=== PATIENT | female | born 1990 | race Caucasian/White ===

== ENCOUNTER 2017-04-26 10:28 | Inpatient (IN) | payer OTHER ==
[~2017-04-26] VITALS: Ht 160 cm; Wt 69.5 kg
[2017-04-26 11:57] VITALS: BP 135/86
[2017-04-26] MEDS ORDERED: OXYTOCIN 30U/ 0.9% NaCL 500ML 500 ML IV SCH (12:34)
[2017-04-26] MEDS ORDERED: LACTATED RINGERS 1,000 ML IV SCH ×2 (12:34)
[2017-04-26] MEDS ORDERED: OXYTOCIN 30U/ 0.9% NaCL 500ML 500 ML IV PRN (12:34)
[2017-04-26] MEDS ORDERED: OXYTOCIN 30U/ 0.9% NaCL 500ML 500 ML IV ONE (12:34)
[2017-04-26] MEDS ORDERED: LACTATED RINGERS 1,000 ML IVBOLUS ONE (13:00)
[2017-04-26] MEDS ORDERED: SODIUM CITRATE/CITRIC ACID 30 ML UDC PO PRN (13:00)
[2017-04-26] MEDS ORDERED: METOCLOPRAMIDE 5 MG/ML, 2ML IVPush PRN (13:00)
[2017-04-26] MEDS ORDERED: RHOGAM FROM BLOOD BANK 1 NOTE EA IM/IV PRN (13:00)
[2017-04-26 13:19] LABS: DAU SCREEN DISCLAIMER
[2017-04-26 13:26] LABS: HEMATOCRIT 38.3 % (34.6-47.8); HEMOGLOBIN 12.8 g/dL (11.7-16.4); WHITE BLOOD COUNT 11.5 x10^3/uL (3.4-10)
[2017-04-26 13:40] LABS: ASPARTATE AMINO TRANSFERASE 15 U/L (15-37); BLOOD UREA NITROGEN 4 mg/dL (7-18)
[2017-04-26] MEDS ORDERED: D5%-LACTATED RINGERS 1,000 ML IV SCH (14:00)
[2017-04-26] MEDS ORDERED: OXYTOCIN 30U/ 0.9% NaCL 500ML 500 ML ONE (15:15)
[2017-04-26] MEDS ORDERED: SODIUM CITRATE/CITRIC ACID 30 ML UDC ONE ×2 (15:15→16:37)
[2017-04-26] MEDS ORDERED: METOCLOPRAMIDE 5 MG/ML, 2ML ONE ×2 (15:15→16:37)
[2017-04-26] MEDS ORDERED: HYDROmorphone 1 MG/ML, 1ML IV PRN (15:30)
[2017-04-26] MEDS ORDERED: ONDANSETRON 2MG/ML, 2ML IVPush PRN (15:30)
[2017-04-26] MEDS ORDERED: MIDAZOLAM 1 MG/ML, 2ML IV PRN (15:30)
[2017-04-26] MEDS ORDERED: HYDROcodone/APAP 7.5-325MG/15ML UDC PO PRN (15:30)
[2017-04-26] MEDS ORDERED: LABETALOL 5MG/ML, 20ML IV PRN (15:30)
[2017-04-26] MEDS ORDERED: PROMETHAZINE 25 MG/ML, 1ML IV PRN (15:30)
[2017-04-26] MEDS ORDERED: MEPERIDINE/PF 25MG/0.5ML IVPush PRN (15:30)
[2017-04-26] MEDS ORDERED: EPHEDRINE 50 MG/ML, 1ML IVPush PRN (15:30)
[2017-04-26] MEDS ORDERED: ALBUTEROL SULFATE 2.5 MG/3 ML NPPB PRN (15:30)
[2017-04-26] MEDS ORDERED: hydrALAzine 20 MG/ML, 1ML IV PRN (15:30)
[2017-04-26] MEDS ORDERED: OXYcodone 5 MG/5 ML ORAL.SOL UDC PO PRN ×3 (15:30→18:30)
[2017-04-26] MEDS ORDERED: MIDAZOLAM 1 MG/ML, 2ML ONE (15:32)
[2017-04-26] MEDS ORDERED: FENTANYL PF 100 MCG/2ML ONE ×3 (15:33→17:55)
[2017-04-26] MEDS ORDERED: ONDANSETRON 2MG/ML, 2ML ONE (16:37)
[2017-04-26] MEDS ORDERED: CEFAZOLIN 1,000 MG ONE (16:37)
[2017-04-26] MEDS ORDERED: DEXAMETHASONE 4 MG/ML, 1ML ONE (16:37)
[2017-04-26] MEDS ORDERED: OXYTOCIN 10 UNITS/ML, 1ML ONE (16:37)
[2017-04-26] MEDS ORDERED: KETOROLAC 30 MG/1 ML ONE (16:37)
[2017-04-26] MEDS ORDERED: OXYcodone 5 MG/5 ML ORAL.SOL UDC ONE ×2 (17:56)
[2017-04-26] MEDS: FENTANYL PF 100 MCG/2ML IV PRN ×2 (18:01→18:55)
[2017-04-26] MEDS: OXYTOCIN 30U/ 0.9% NaCL 500ML 500 ML IV SCH (18:16)
[2017-04-26] MEDS: LACTATED RINGERS 1,000 ML IV SCH ×2 (18:16)
[2017-04-26] MEDS ORDERED: CARBOPROST TROMETHAMINE 250 MCG/ML, 1ML IM PRN (18:30)
[2017-04-26] MEDS ORDERED: OXYcodone IR 5MG TABLET PO PRN (18:30)
[2017-04-26] MEDS ORDERED: DOCUSATE 100 MG CAPSULE PO PRN (18:30)
[2017-04-26] MEDS ORDERED: METHYLERGONOVINE 0.2 MG/ML IM PRN (18:30)
[2017-04-26] MEDS ORDERED: METOCLOPRAMIDE 5 MG/ML, 2ML IV PRN (18:30)
[2017-04-26] MEDS ORDERED: ONDANSETRON 2MG/ML, 2ML IV PRN (18:30)
[2017-04-26] MEDS ORDERED: MEPERIDINE/PF 50 MG/ML IM PRN (18:30)
[2017-04-26] MEDS ORDERED: BISACODYL 10 MG SUPP PR PRN (18:30)
[2017-04-26] MEDS ORDERED: MISOPROSTOL 200 MCG TABLET PR PRN (18:30)
[2017-04-26] MEDS ORDERED: ACETAMINOPHEN 325 MG TABLET PO PRN ×2 (18:30)
[2017-04-26] MEDS ORDERED: HYDROmorphone 1 MG/ML, 1ML ONE (19:45)
[2017-04-26 21:35] VITALS: BP 103/61
[2017-04-26] MEDS: OXYcodone/APAP 5/325MG TABLET PO PRN ×2 (22:13→22:17)
[2017-04-26] MEDS: KETOROLAC 30 MG/1 ML IV SCH (23:31)
[2017-04-27 01:11] LABS: HEMATOCRIT 33.6 % (34.6-47.8); HEMOGLOBIN 11.4 g/dL (11.7-16.4); WHITE BLOOD COUNT 17.7 x10^3/uL (3.4-10)
[2017-04-27] MEDS: OXYcodone/APAP 5/325MG TABLET PO PRN ×4 (02:15→17:00)
[2017-04-27] MEDS: LACTATED RINGERS 1,000 ML IV SCH ×5 (02:16→18:16)
[2017-04-27 02:20] VITALS: BP 98/58
[2017-04-27] MEDS: OXYTOCIN 30U/ 0.9% NaCL 500ML 500 ML IV SCH ×2 (04:16→14:16)
[2017-04-27] MEDS: KETOROLAC 30 MG/1 ML IV SCH ×3 (05:34→17:42)
[2017-04-27 05:45] VITALS: BP 97/57
[2017-04-27 08:45] VITALS: BP 94/57
[2017-04-27] MEDS ORDERED: PRENATAL VIT/IRON/FA 1 EACH TABLET PO SCH (09:00)
[2017-04-27] MEDS ORDERED: RHOGAM FROM BLOOD BANK 1 NOTE EA IM/IV ONE (11:30)
[2017-04-27 13:00] VITALS: BP 102/62
[2017-04-27] MEDS ORDERED: IBUP-1222 PO (17:33)
[2017-04-27] MEDS ORDERED: OXYC-302 PO (17:33)
[2017-04-27] MEDS ORDERED: DOCU-131 PO (17:34)
[2017-04-28] MEDS ORDERED: IBUPROFEN 600 MG TABLET PO PRN (18:30)
[2017-04-30 15:07] LABS: APTT 26.1 sec (.); PROTHROMBIN TIME 9.8 sec (.)
== END 2017-04-27 19:45 | disposition home or self-care (01) | DRG 765 ==
LOC: LDOP 10:28 → LDIP 13:44 → 2NW 21:27
PROVIDERS: ADMIT Obstetrics & Gynecology; ATTEND Obstetrics & Gynecology
PROC: 10D00Z1 Extraction of Products of Conception, Low, Open Approach (ICD-10-PCS; principal; 2017-04-26)
PROC: 30233S1 Transfusion of Nonautologous Globulin into Peripheral Vein, Percutaneous Approach (ICD-10-PCS; 2017-04-26)
DX: O36.4XX0 Maternal care for intrauterine death, not applicable or unspecified (principal); O99.354 Diseases of the nervous system complicating childbirth; O99.12 Other diseases of the blood and blood-forming organs and certain disorders involving the immune mechanism complicating childbirth; O36.0930 Maternal care for other rhesus isoimmunization, third trimester, not applicable or unspecified; O34.211 Maternal care for low transverse scar from previous cesarean delivery; O99.52 Diseases of the respiratory system complicating childbirth; J45.909 Unspecified asthma, uncomplicated; G43.909 Migraine, unspecified, not intractable, without status migrainosus; O77.0 Labor and delivery complicated by meconium in amniotic fluid; O99.89 Other specified diseases and conditions complicating pregnancy, childbirth and the puerperium; O32.1XX0 Maternal care for breech presentation, not applicable or unspecified; N73.6 Female pelvic peritoneal adhesions (postinfective); E28.2 Polycystic ovarian syndrome; Z90.49 Acquired absence of other specified parts of digestive tract; Z3A.29 29 weeks gestation of pregnancy; Z37.1 Single stillbirth
CPT/HCPCS: 36415; 76815; 80053; 80307; 81001; 84443; 85025; 85384; 85460; 85461; 85598; 85610; 85613; 85670; 85730; 85732; 86146; 86147; 86850; 86870; 86900; 86922; 86923; 87086; 88305; J0690; J1100; J1170; J1885; J2250; J2405; J2790; J3010; G0479; J2590; J2765; J7120

== ENCOUNTER 2019-05-23 14:13 | Outpatient (CLI) | payer BC ==
[~2019-05-23] VITALS: Ht 160 cm; Wt 76.8 kg
[~2019-05-23 14:13] MED LIST: DOCU-131 PO; IBUP-1222 PO; OXYC-302 PO
[2019-05-23 14:34] VITALS: BP 113/71
[2019-05-23 15:24] LABS: MICROSCOPIC NOT IND
[2019-05-23] MEDS ORDERED: NIFE30TA15 PO (16:33)
[2019-05-23] MEDS ORDERED: MAGN400T36 PO (16:40)
[2019-05-23] MEDS ORDERED: ASPI-696 PO (16:40)
[2019-05-23] MEDS ORDERED: LEVO50TA5 PO (16:40)
== END 2019-05-23 17:10 | disposition home or self-care (01) ==
LOC: LDOP 14:13
PROVIDERS: ATTEND Obstetrics & Gynecology
DX: O62.9 Abnormality of forces of labor, unspecified (principal); Z3A.32 32 weeks gestation of pregnancy
CPT/HCPCS: 59025; 81003; 87086; 99201; G0463

== ENCOUNTER 2019-06-04 20:28 | Outpatient (CLI) | payer BC ==
[~2019-06-04] VITALS: Ht 160 cm; Wt 77.0 kg
[~2019-06-04 20:28] MED LIST changes: +ASPI-696 PO; +LEVO50TA5 PO; +MAGN400T36 PO; +NIFE30TA15 PO
[2019-06-04 20:49] VITALS: BP 121/68
[2019-06-04 20:59] LABS: MICROSCOPIC NOT IND
[2019-06-04] MEDS ORDERED: NIFE10CA49 PO (21:35)
== END 2019-06-04 22:04 | disposition home or self-care (01) ==
LOC: LDOP 20:28
PROVIDERS: ATTEND Obstetrics & Gynecology
DX: O26.893 Other specified pregnancy related conditions, third trimester (principal); R10.9 Unspecified abdominal pain; Z3A.34 34 weeks gestation of pregnancy
CPT/HCPCS: 59025; 81003; 87086; 99211; G0463

== ENCOUNTER 2019-06-06 16:42 | Outpatient (CLI) | payer BC ==
[~2019-06-06] VITALS: Ht 160 cm; Wt 78.1 kg
[~2019-06-06 16:42] MED LIST changes: +NIFE10CA49 PO
[2019-06-06] MEDS ORDERED: BETAMETHASONE 6 MG/ML, 5ML IM ONE (17:00)
[2019-06-06] MEDS ORDERED: BETAMETHASONE 6 MG/ML, 5ML IM SCH (17:00)
[2019-06-06] MEDS ORDERED: PREN1TAB98 PO (17:10)
== END 2019-06-06 17:18 | disposition home or self-care (01) ==
LOC: LDOP 16:42
PROVIDERS: ATTEND Obstetrics & Gynecology
DX: Z34.93 Encounter for supervision of normal pregnancy, unspecified, third trimester (principal); Z3A.34 34 weeks gestation of pregnancy
CPT/HCPCS: 59025; 96372; 99211; J0702; G0463

== ENCOUNTER 2019-06-07 12:34 | Inpatient (IN) | payer BC ==
[~2019-06-07] VITALS: Ht 160 cm; Wt 78.1 kg
[~2019-06-07 12:34] MED LIST changes: +PREN1TAB98 PO
[2019-06-07] MEDS ORDERED: LACTATED RINGERS 1,000 ML IVBOLUS ONE ×2 (13:00→15:30)
[2019-06-07] MEDS ORDERED: FENTANYL PF 100 MCG/2ML ONE ×2 (13:24→15:37)
[2019-06-07] MEDS: FENTANYL PF 100 MCG/2ML IVPush PRN ×2 (13:26→15:39)
[2019-06-07] MEDS ORDERED: BETAMETHASONE 6 MG/ML, 5ML IM ONE (13:30)
[2019-06-07 13:40] VITALS: BP 134/67
[2019-06-07 13:44] LABS: MEAN CORPUSCULAR HGB CONC 32.7 g/dL (32.4-35.8); MEAN CORPUSCULAR VOLUME 88.8 fL (80-100); MEAN PLATELET VOLUME 8.6 fL (7.4-10.4); PLATELET COUNT 263 x10^3/uL (130-400); RED BLOOD COUNT 4.03 x10^6/uL (3.82-5.3); RED CELL DISTRIBUTION WIDTH 17.5 % (9.6-15.2)
[2019-06-07] MEDS: LACTATED RINGERS 1,000 ML IV SCH ×4 (14:01→21:00)
[2019-06-07] MEDS ORDERED: OXYTOCIN 30U/ 0.9% NaCL 500ML 500 ML ONE (14:03)
[2019-06-07] MEDS ORDERED: NEWBORN KIT ONE (14:03)
[2019-06-07] MEDS ORDERED: SODIUM CITRATE/CITRIC ACID 30 ML UDC PO ONE (15:30)
[2019-06-07] MEDS ORDERED: METOCLOPRAMIDE 5 MG/ML, 2ML IV ONE (15:30)
[2019-06-07 15:34] LABS: MD YES
[2019-06-07] MEDS ORDERED: METOCLOPRAMIDE 5 MG/ML, 2ML ONE (15:36)
[2019-06-07] MEDS ORDERED: SODIUM CITRATE/CITRIC ACID 30 ML UDC ONE (15:36)
[2019-06-07 15:39] LABS: BAND#(MANUAL) 0.94 x10^3/uL; BANDS%(MANUAL) 5 % (0-7); BASOS#(MANUAL) 0.19 x10^3/uL (0-0.1); BASOS% (MANUAL) 1 % (0-1); LYMPH#(MANUAL) 1.88 x10^3/uL (1-3.4); LYMPHS% (MANUAL) 10 % (22-44); MONOS#(MANUAL) 1.13 x10^3/uL (0.3-2.7); MONOS% (MANUAL) 6 % (2-9); MYELOCYTES# (MANUAL) 0.19 x10^3/uL (0-0); MYELOCYTES% (MANUAL) 1 % (0-0); SEGS% (MANUAL) 75 % (42-75)
[2019-06-07 15:40] LABS: OTHER CELLS # (MANUAL) 0.38 x10^3/uL (0-0); OTHER CELLS % (MANUAL) 2 % (0-0)
[2019-06-07 15:44] LABS: <PLATELET ESTIMATE> ADEQUATE; <PLT MORPHOLOGY> NORMAL PLT MORPH; <RBC MORPHOLOGY> NORMAL
[2019-06-07] MEDS ORDERED: morphine SULFATE/PF 0.5 MG/ML, 10ML ONE (16:16)
[2019-06-07] MEDS ORDERED: EPINEPHRINE 1 MG/ML, 1ML ONE (16:26)
[2019-06-07] MEDS ORDERED: CEFAZOLIN 1,000 MG ONE (18:17)
[2019-06-07] MEDS ORDERED: ONDANSETRON 2MG/ML, 2ML ONE (18:17)
[2019-06-07] MEDS ORDERED: PHENYLEPHRINE 10 MG/ML ONE (18:17)
[2019-06-07] MEDS ORDERED: EPHEDRINE 50 MG/ML, 1ML ONE (18:17)
[2019-06-07] MEDS ORDERED: OXYTOCIN 10 UNITS/ML, 1ML ONE (18:17)
[2019-06-07] MEDS ORDERED: WATER-INJECTION,STERILE 10 ML IV ONE (18:17)
[2019-06-07] MEDS ORDERED: LIDOCAINE-MPF 2% ,5ML ONE (18:24)
[2019-06-07] MEDS ORDERED: METOCLOPRAMIDE 5 MG/ML, 2ML IV PRN (18:30)
[2019-06-07] MEDS ORDERED: CARBOPROST TROMETHAMINE 250 MCG/ML, 1ML IM PRN (18:30)
[2019-06-07] MEDS ORDERED: TRANEXAMIC ACID 1,000 MG in SODIUM CHLORIDE 0.9% 100 ML IVPB ONE (18:30)
[2019-06-07] MEDS ORDERED: OXYcodone IR 5MG TABLET PO PRN (18:30)
[2019-06-07] MEDS ORDERED: ONDANSETRON 2MG/ML, 2ML IV PRN ×2 (18:30→19:30)
[2019-06-07] MEDS ORDERED: MISOPROSTOL 200 MCG TABLET PR PRN (18:30)
[2019-06-07] MEDS ORDERED: ACETAMINOPHEN 325 MG TABLET PO PRN ×2 (18:30)
[2019-06-07] MEDS: KETOROLAC 30 MG/1 ML IV SCH (18:30)
[2019-06-07] MEDS ORDERED: METHYLERGONOVINE 0.2 MG/ML IM PRN (18:30)
[2019-06-07] MEDS ORDERED: MEPERIDINE/PF 50 MG/ML IM PRN (18:30)
[2019-06-07] MEDS ORDERED: MIDAZOLAM 1 MG/ML, 2ML ONE (18:32)
[2019-06-07] MEDS ORDERED: ONDANSETRON 2MG/ML, 2ML IVPush PRN (19:30)
[2019-06-07] MEDS ORDERED: KETOROLAC 30 MG/1 ML IVPush PRN (19:30)
[2019-06-07] MEDS ORDERED: HYDROmorphone/PF 10 MG/ML, 1ML IVPush PRN (19:30)
[2019-06-07] MEDS ORDERED: NALOXONE 0.4 MG/ML, 1ML IVPush PRN (19:30)
[2019-06-07] MEDS ORDERED: OXYcodone/APAP 5/325MG TABLET PO PRN (19:30)
[2019-06-07] MEDS ORDERED: HYDROmorphone 2 MG/ML, 1ML IVPush PRN (19:30)
[2019-06-07] MEDS ORDERED: DIPHENHYDRAMINE 50 MG/ML, 1ML IVPush PRN (19:30)
[2019-06-07] MEDS ORDERED: OXYcodone 5 MG/5 ML ORAL.SOL UDC PO PRN (19:30)
[2019-06-07] MEDS ORDERED: KETOROLAC 30 MG/1 ML IV PRN (19:30)
[2019-06-07] MEDS ORDERED: KETOROLAC 30 MG/1 ML ONE (20:04)
[2019-06-07] MEDS: OXYTOCIN 30U/ 0.9% NaCL 500ML 500 ML IV SCH (20:20)
[2019-06-07 21:20] VITALS: BP 99/61
[2019-06-07] MEDS: OXYcodone/APAP 5/325MG TABLET PO PRN (23:04)
[2019-06-08 00:15] VITALS: BP 113/75
[2019-06-08] MEDS: KETOROLAC 30 MG/1 ML IV SCH ×4 (01:58→20:05)
[2019-06-08] MEDS: LACTATED RINGERS 1,000 ML IV SCH ×7 (02:02→18:02)
[2019-06-08] MEDS: OXYTOCIN 30U/ 0.9% NaCL 500ML 500 ML IV SCH ×2 (04:02→14:02)
[2019-06-08 04:15] VITALS: BP 94/62
[2019-06-08] MEDS: OXYcodone/APAP 5/325MG TABLET PO PRN ×4 (04:24→22:29)
[2019-06-08 06:07] LABS: MEAN CORPUSCULAR HEMOGLOBIN 28.8 pg (27.0-34.8); MEAN CORPUSCULAR HGB CONC 32.1 g/dL (32.4-35.8); MEAN CORPUSCULAR VOLUME 89.8 fL (80-100); MEAN PLATELET VOLUME 9.3 fL (7.4-10.4); PLATELET COUNT 236 x10^3/uL (130-400); RED BLOOD COUNT 3.52 x10^6/uL (3.82-5.3)
[2019-06-08 06:28] LABS: BASOPHILS # (AUTO) 0.02 x10^3/uL (0-0.1); BASOPHILS % (AUTO) 0 % (0-1); EOSINOPHILS # (AUTO) 0.25 x10^3/uL (0-0.4); EOSINOPHILS % (AUTO) 1 % (1-7); LYMPHOCYTES # (AUTO) 1.99 x10^3/uL (1-3.4); LYMPHOCYTES % (AUTO) 10 % (22-44); MD SCAN; MONOCYTES % (AUTO) 5 % (2-9); NEUTROPHILS # (AUTO) 16.51 x10^3/uL (1.8-6.8); NEUTROPHILS % (AUTO) 84 % (42-75)
[2019-06-08 08:00] VITALS: BP 92/50
[2019-06-08] MEDS: DOCUSATE 100 MG CAPSULE PO PRN ×2 (08:16→20:05)
[2019-06-08] MEDS: PRENATAL VIT/IRON/FA 1 EACH TABLET PO SCH (08:16)
[2019-06-08 14:00] VITALS: BP 104/68
[2019-06-08 20:15] VITALS: BP 108/74
[2019-06-09] MEDS: OXYTOCIN 30U/ 0.9% NaCL 500ML 500 ML IV SCH ×3 (00:02→20:02)
[2019-06-09] MEDS: KETOROLAC 30 MG/1 ML IV SCH ×3 (02:01→14:21)
[2019-06-09] MEDS: LACTATED RINGERS 1,000 ML IV SCH ×3 (02:02→18:02)
[2019-06-09] MEDS: OXYcodone/APAP 5/325MG TABLET PO PRN ×4 (04:00→20:47)
[2019-06-09 07:21] VITALS: BP 97/68
[2019-06-09] MEDS: PRENATAL VIT/IRON/FA 1 EACH TABLET PO SCH (08:14)
[2019-06-09] MEDS: DOCUSATE 100 MG CAPSULE PO PRN ×2 (08:14→20:36)
[2019-06-09 19:33] VITALS: BP 101/65
[2019-06-09] MEDS: SIMETHICONE 80 MG CHEW TAB PO PRN (20:47)
[2019-06-10] MEDS: OXYcodone/APAP 5/325MG TABLET PO PRN ×5 (02:05→19:40)
[2019-06-10] MEDS: SIMETHICONE 80 MG CHEW TAB PO PRN ×2 (02:05→19:40)
[2019-06-10] MEDS ORDERED: IBUPROFEN 600 MG TABLET ONE (02:09)
[2019-06-10 07:31] VITALS: BP 69/63
[2019-06-10] MEDS: IBUPROFEN 600 MG TABLET PO PRN ×2 (10:06→17:19)
[2019-06-10] MEDS: PRENATAL VIT/IRON/FA 1 EACH TABLET PO SCH (10:06)
[2019-06-10] MEDS: DOCUSATE 100 MG CAPSULE PO PRN ×2 (10:06→19:40)
[2019-06-10 19:35] VITALS: BP 112/71
[2019-06-11] MEDS: IBUPROFEN 600 MG TABLET PO PRN ×3 (00:04→17:52)
[2019-06-11] MEDS: OXYcodone/APAP 5/325MG TABLET PO PRN ×4 (02:56→17:52)
[2019-06-11] MEDS: DOCUSATE 100 MG CAPSULE PO PRN (07:11)
[2019-06-11] MEDS: PRENATAL VIT/IRON/FA 1 EACH TABLET PO SCH (07:11)
[2019-06-11 07:34] VITALS: BP 111/74
[2019-06-11] MEDS ORDERED: OXYC-302 PO (14:03)
[2019-06-11] MEDS ORDERED: IBUP-1222 PO (14:04)
[2019-06-11] MEDS ORDERED: DOCU-131 PO (14:05)
== END 2019-06-11 18:00 | disposition home or self-care (01) | DRG 786 ==
LOC: LDOP 12:34 → LDIP 12:49 → OBSVTOIN 15:29 → 2NW 21:19
PROVIDERS: ADMIT Obstetrics & Gynecology; ATTEND Obstetrics & Gynecology
PROC: 10D00Z1 Extraction of Products of Conception, Low, Open Approach (ICD-10-PCS; principal; 2019-06-07)
DX: O34.211 Maternal care for low transverse scar from previous cesarean delivery (principal); O60.14X0 Preterm labor third trimester with preterm delivery third trimester, not applicable or unspecified; O69.81X0 Labor and delivery complicated by cord around neck, without compression, not applicable or unspecified; Z37.0 Single live birth; O99.284 Endocrine, nutritional and metabolic diseases complicating childbirth; E03.9 Hypothyroidism, unspecified; Z3A.35 35 weeks gestation of pregnancy
CPT/HCPCS: 36415; J3490; 82803; 85025; 86850; 86870; 86900; 86922; 86923; 87389; G0378; J0171; J0690; J0702; J1885; J2250; J2274; J2405; J3010; J1200; J2370; J2590; J2765; J7120